=== PATIENT | female | born 1970 | race Caucasian/White ===

== ENCOUNTER 2025-06-17 22:33 | Emergency (ER) | payer OTHER ==
[~2025-06-17] VITALS: Ht 165.1 cm; Wt 59.0 kg
[2025-06-17 22:39] VITALS: BP 114/42; PULSE 72; RESP 18; TEMP 36.7; O2SAT 98
[2025-06-18] MEDS: KETOROLAC 30MG/ML VIAL IM ONE (01:57)
== END 2025-06-18 02:02 | disposition home or self-care (01) ==
LOC: ER 22:33
DX: S00.01XA Abrasion of scalp, initial encounter (principal); F10.129 Alcohol abuse with intoxication, unspecified; X58.XXXA Exposure to other specified factors, initial encounter; Y93.89 Activity, other specified; Y92.89 Other specified places as the place of occurrence of the external cause; Y99.8 Other external cause status; Y90.9 Presence of alcohol in blood, level not specified
CPT/HCPCS: 99285; 70450; 96372; J1885; Z7610